=== PATIENT | male | born 1965 | race Caucasian/White ===

== ENCOUNTER 2024-11-11 21:24 | Inpatient (IN) | payer OTHER, SELFPAY ==
[2024-11-11 21:50] VITALS: BP 130/81; PULSE 77; RESP 16; TEMP 37.1; O2SAT 96
[2024-11-11 22:05] VITALS: BMI 19.6
[2024-11-11] MEDS: hydrOXYzine HCL 25 MG TABLET PO (23:44)
[2024-11-11] MEDS: traZODone HCL 50 MG TABLET PO (23:44)
[2024-11-12] MEDS: OLANZapine 5 MG TABLET PO (00:38)
--- NOTE | 2024-11-12 01:06 | PC.NURSE ---
Bernardo is a 59 year old male that arrived from [facility] and was signed in on a 12b. Patient originally went to [facility] for suicidal and homicidal ideation. On unit, patient reporting high anxiety and high depression. Patient reporting suicidal ideation as he reports has chronic back and head pain that is unresolved with prescription pain medications. Has no active plan in the hospital. Patient has some homicidal ideation to police at this time. Patient denies any active AH/VH. UTOX was positive for opiates and marijuana. Patient was placed on 15 minute safety checks. Patient did not come into the hospital with any belongings except the underwear he has on and his socks and slippers. No phone or wallet present.
[2024-11-12] MEDS: traZODone HCL 50 MG TABLET PO ×2 (01:31→20:42)
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
[2024-11-12 08:02] LABS: Estimated Average Glucose 111 mg/dL; Hemoglobin A1C 147.4433 umol/L; Hemoglobin A1c % 5.5 % (<6.0)
[2024-11-12 08:17] LABS: Alanine Aminotransferase 14 U/L (0-40); Albumin Level 4.1 g/dL (3.5-5.0); Alkaline Phosphatase 49 U/L (39-117); Anion Gap 11 (12-20); Aspartate Amino Transferase 17 U/L (5-37); Bilirubin Total 0.3 mg/dL (0.0-1.0); Blood Urea Nitrogen 16 mg/dL (9-16); Carbon Dioxide 25 mmol/L (22-29); Chloride 111 mmol/L (96-108); Cholesterol 183 mg/dL (<200); Creatinine Clr Calc Pharmacy 97.5; Estimated Glomerular Filt Rate > 60; Glucose Random 147 mg/dL (60-115); HDL Cholesterol 56 mg/dL (>40); LDL Cholesterol Calculated 111 mg/dL (<100); Potassium 3.8 mmol/L (3.3-5.1); Sodium 143 mmol/L (135-145); Total Protein 6.3 g/dL (6.5-8.0); Triglycerides 82 mg/dL (<150)
[2024-11-12 08:31] LABS: TSH reflex Free T4 1.48 uIU/mL (0.32-4.0)
[2024-11-12 08:37] VITALS: BP 126/82; PULSE 70; TEMP 36.6; O2SAT 98
[2024-11-12] MEDS: oxyCODONE HCl Immed Release 5 MG TABLET 10 MG PO ×3 (08:59→20:43)
[2024-11-12] MEDS: NaPROXEN 250 MG TABLET PO ×2 (09:08→20:42)
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
[2024-11-12] MEDS: Fluticasone/Vilanterol 200/25 BLST.W.DEV 1 PUFF INHALE (10:35)
[2024-11-12 20:40] VITALS: BP 136/73; PULSE 60; RESP 14; TEMP 37.1; O2SAT 98
[2024-11-12] MEDS: Divalproex Sodium ER 500 MG TAB.ER.24H PO (20:41)
[2024-11-12] MEDS: cloNIDine HCL 0.2 MG TABLET PO (20:43)
[2024-11-13] MEDS: oxyCODONE HCl Immed Release 5 MG TABLET 10 MG PO ×4 (05:37→23:01)
[2024-11-13 08:00] VITALS: BP 123/66; PULSE 55; RESP 14; TEMP 36.6; O2SAT 98
[2024-11-13] MEDS: NaPROXEN 250 MG TABLET PO ×2 (08:21→21:36)
[2024-11-13] MEDS: Fluticasone/Vilanterol 200/25 BLST.W.DEV 1 PUFF INHALE (08:21)
--- NOTE | 2024-11-13 08:22 | MHC.RECOVRN ---
Addiction consult received for patient in regards to cannabis use. Patient declined to meet with this property underwriter. No follow up necessary.
--- NOTE | 2024-11-13 09:03 | P.PNPSI_ITS ---
Subjective Subjective Date of Service: 11/13/24 Reason For Visit: Bipolar 1 Disorder, Cocaine use disorder... Subjective Notes: Section 12B Interim History: Pacing the unit. Expressing some anxiety and depression. Eating OK. Still complaining of pain and wants pain med increased. Referred to regular team tomorrow. When asked abut sleep, states I can't believe how good I slept Medication Compliance: Yes Side effects from medications: No Attending Groups: Intermittent Review of Systems Acute medical concerns: No Medical Review of Systems: unchanged Mental Status Exam Mental Status Exam Patient Appearance: Unkempt Patient Orientation: Person, Place, Time and Situation Level of Consciousness: Alert Patient Behavior: Appropriate Mood Description: Depressed and Anxious Affect Description: Calm Patient Cognition Impaired: No Ability to Follow Directions: Good Speech Pattern: Clear Memory Description: Intact Hallucinations: None Delusions: Not Present Thought Process: Linear Thought Content: positive for Intact Depressive Symptoms: Increased Anxiety Judgement: Fair Diagnostics Vital Signs (24Hr): Vital Signs - 24 hr 11/12/24 20:40 11/13/24 08:00 Temperature 98.7 F 97.8 F Pulse Rate 60 55 Respiratory Rate 14 14 Blood Pressure 136/73 123/66 Pulse Oximetry 98 98 Oxygen Delivery Method Room Air Room Air BMI result Body Mass Index 19.6 Labs 11/12/24 07:43 Labs: Laboratory Results - last 48 hr 11/12/24 07:43 Sodium 143 Potassium 3.8 Chloride 111 H Carbon Dioxide 25 Anion Gap 11 L BUN 16 Creatinine 0.67 Estim Creat Clear Calc 97.5 Estimated GFR > 60 Random Glucose 147 H Estimat Average Glucose 111 Hemoglobin A1c % 5.5 Calcium 9.0 Total Bilirubin 0.3 AST 17 ALT 14 Alkaline Phosphatase 49 Total Protein 6.3 L Albumin 4.1 Triglycerides 82 Cholesterol 183 LDL Cholesterol, Calc 111 H HDL Cholesterol 56 TSH 1.48 Medications Medications Current Medications Acetaminophen (Acetaminophen 325 Mg Tablet) 650 mg PO Q6H PRN PRN Reason: Headache/Pain, Scale 1-10 Al Hydroxide/Mg Hydroxide (Magnesium Hydrox/Alum Hydrox 30 Ml Oral.Susp) 30 ml PO Q6H PRN PRN Reason: Heartburn/Nausea Albuterol Sulfate (Albuterol Sulfate 90 Mcg 8 Gm Inhaler) 2 puff INHALE QID PRN PRN Reason: Pain, Severe Clonidine HCl (Clonidine Hcl 0.2 Mg Tablet) 0.2 mg PO BEDTIME [facility]; Protocol Last Admin: 11/12/24 20:43 Dose: 0.2 mg Clonidine HCl (Clonidine Hcl 0.1 Mg Tablet) 0.1 mg PO TID PRN; Protocol PRN Reason: anxiety Divalproex Sodium (Divalproex Sodium Er 500 Mg Tab.Er.24h) 500 mg PO BEDTIME [facility] Last Admin: 11/12/24 20:41 Dose: 500 mg Fluticasone/Vilanterol (Fluticasone/Vilanterol 200/25 Blst.W.Dev) 1 puff INHALE RDAILY [facility] Last Admin: 11/13/24 08:21 Dose: 1 puff Hydroxyzine HCl (Hydroxyzine Hcl 25 Mg Tablet) 25 mg PO Q6H PRN PRN Reason: mild anxiety Last Admin: 11/11/24 23:44 Dose: 25 mg Magnesium Hydroxide (Milk Of Magnesia 30 Ml Oral.Susp) 30 ml PO DAILY PRN PRN Reason: Constipation Naproxen (Naproxen 250 Mg Tablet) 250 mg PO BID [facility] Last Admin: 11/13/24 08:21 Dose: 250 mg Nicotine (Nicotine 21 Mg Patch.Td24) 21 mg TRANSDERMA DAILY PRN PRN Reason: smoking cessation Nicotine Polacrilex (Nicotine Polacrilex 2 Mg Gum) 4 mg BUCCAL Q2H PRN PRN Reason: Nicotine Cravings Olanzapine (Olanzapine 5 Mg Tablet) 5 mg PO TID PRN PRN Reason: agitation Last Admin: 11/12/24 00:38 Dose: 5 mg Ondansetron HCl (Ondansetron Odt 4 Mg Tab.Rapdis) 4 mg TRANSLINGU BID PRN PRN Reason: nausea Oxycodone HCl (Oxycodone Hcl Immed Release 5 Mg Tablet) 10 mg PO Q6H PRN PRN Reason: chronic pain Last Admin: 11/13/24 05:37 Dose: 10 mg Trazodone HCl (Trazodone Hcl 50 Mg Tablet) 50 mg PO BEDTIME [facility] Last Admin: 11/12/24 20:42 Dose: 50 mg Allergies Allergies Allergy/AdvReac Type Severity Reaction Status Date / Time acetaminophen [From Tylenol] AdvReac Gastrointestinal Verified 11/11/24 22:04 Hemorrhage aspirin AdvReac Gastrointestinal Verified 11/11/24 22:04 Hemorrhage ibuprofen AdvReac Gastrointestinal Verified 11/11/24 22:04 Hemorrhage Assessment & Plan Assessment & Plan (1) Bipolar disorder: Status: Acute Code(s): F31.9 - Bipolar disorder, unspecified (2) PTSD (post-traumatic stress disorder): Status: Acute Code(s): F43.10 - Post-traumatic stress disorder, unspecified (3) Cocaine use: Status: Acute Code(s): F14.90 - Cocaine use, unspecified, uncomplicated Plan We discussed restarting Depakote, clonidine and trazodone and could discussed with primary treatment team other medication regimen. Would also like to re- establish care in the community after discharge. 11/13/24: no med changes, just started on depakote, consider increasing dose but doing better affectively and slept well. Need to address cocaine use. Needs pain management plan post-discharge. Reason for continued inpatient stay Substantial Risk for: med/psych decompensation Time Spent With Patient Time: Total time managing care of this patient today ____ minutes.
--- NOTE | 2024-11-13 11:23 | P.PNPSI_ITS ---
Subjective Subjective Date of Service: 11/13/24 Reason For Visit: Bipolar 1 Disorder, Cocaine use disorder... Subjective Notes: Section 12B (exp 11/16) Interim History: Complaining of pain. Wants mor oxycodone Diagnostics Vital Signs (24Hr): Vital Signs - 24 hr 11/12/24 20:40 11/13/24 08:00 Temperature 98.7 F 97.8 F Pulse Rate 60 55 Respiratory Rate 14 14 Blood Pressure 136/73 123/66 Pulse Oximetry 98 98 Oxygen Delivery Method Room Air Room Air BMI result Body Mass Index 19.6 Labs 11/12/24 07:43 Labs: Laboratory Results - last 48 hr 11/12/24 07:43 Sodium 143 Potassium 3.8 Chloride 111 H Carbon Dioxide 25 Anion Gap 11 L BUN 16 Creatinine 0.67 Estim Creat Clear Calc 97.5 Estimated GFR > 60 Random Glucose 147 H Estimat Average Glucose 111 Hemoglobin A1c % 5.5 Calcium 9.0 Total Bilirubin 0.3 AST 17 ALT 14 Alkaline Phosphatase 49 Total Protein 6.3 L Albumin 4.1 Triglycerides 82 Cholesterol 183 LDL Cholesterol, Calc 111 H HDL Cholesterol 56 TSH 1.48 Medications Medications Current Medications Acetaminophen (Acetaminophen 325 Mg Tablet) 650 mg PO Q6H PRN PRN Reason: Headache/Pain, Scale 1-10 Al Hydroxide/Mg Hydroxide (Magnesium Hydrox/Alum Hydrox 30 Ml Oral.Susp) 30 ml PO Q6H PRN PRN Reason: Heartburn/Nausea Albuterol Sulfate (Albuterol Sulfate 90 Mcg 8 Gm Inhaler) 2 puff INHALE QID PRN PRN Reason: Pain, Severe Clonidine HCl (Clonidine Hcl 0.2 Mg Tablet) 0.2 mg PO BEDTIME [facility]; Protocol Last Admin: 11/12/24 20:43 Dose: 0.2 mg Clonidine HCl (Clonidine Hcl 0.1 Mg Tablet) 0.1 mg PO TID PRN; Protocol PRN Reason: anxiety Divalproex Sodium (Divalproex Sodium Er 500 Mg Tab.Er.24h) 500 mg PO BEDTIME [facility] Last Admin: 11/12/24 20:41 Dose: 500 mg Fluticasone/Vilanterol (Fluticasone/Vilanterol 200/25 Blst.W.Dev) 1 puff INHALE RDAILY [facility] Last Admin: 11/13/24 08:21 Dose: 1 puff Hydroxyzine HCl (Hydroxyzine Hcl 25 Mg Tablet) 25 mg PO Q6H PRN PRN Reason: mild anxiety Last Admin: 11/11/24 23:44 Dose: 25 mg Magnesium Hydroxide (Milk Of Magnesia 30 Ml Oral.Susp) 30 ml PO DAILY PRN PRN Reason: Constipation Naproxen (Naproxen 250 Mg Tablet) 250 mg PO BID [facility] Last Admin: 11/13/24 08:21 Dose: 250 mg Nicotine (Nicotine 21 Mg Patch.Td24) 21 mg TRANSDERMA DAILY PRN PRN Reason: smoking cessation Nicotine Polacrilex (Nicotine Polacrilex 2 Mg Gum) 4 mg BUCCAL Q2H PRN PRN Reason: Nicotine Cravings Olanzapine (Olanzapine 5 Mg Tablet) 5 mg PO TID PRN PRN Reason: agitation Last Admin: 11/12/24 00:38 Dose: 5 mg Ondansetron HCl (Ondansetron Odt 4 Mg Tab.Rapdis) 4 mg TRANSLINGU BID PRN PRN Reason: nausea Oxycodone HCl (Oxycodone Hcl Immed Release 5 Mg Tablet) 10 mg PO Q6H [facility] Last Admin: 11/13/24 11:09 Dose: Not Given Trazodone HCl (Trazodone Hcl 50 Mg Tablet) 50 mg PO BEDTIME [facility] Last Admin: 11/12/24 20:42 Dose: 50 mg Allergies Allergies Allergy/AdvReac Type Severity Reaction Status Date / Time acetaminophen [From Tylenol] AdvReac Gastrointestinal Verified 11/11/24 22:04 Hemorrhage aspirin AdvReac Gastrointestinal Verified 11/11/24 22:04 Hemorrhage ibuprofen AdvReac Gastrointestinal Verified 11/11/24 22:04 Hemorrhage Assessment & Plan Assessment & Plan (1) Bipolar disorder: Status: Acute Code(s): F31.9 - Bipolar disorder, unspecified (2) PTSD (post-traumatic stress disorder): Status: Acute Code(s): F43.10 - Post-traumatic stress disorder, unspecified (3) Cocaine use: Status: Acute Code(s): F14.90 - Cocaine use, unspecified, uncomplicated Plan We discussed restarting Depakote, clonidine and trazodone and could discussed with primary treatment team other medication regimen. Would also like to re- establish care in the community after discharge. 11/13/24: no med changes, just started on depakote, consider increasing dose but doing better affectively and slept well. Need to address cocaine use. Needs pain management plan post-discharge. Reason for continued inpatient stay Substantial Risk for: rapid decompensation Time Spent With Patient Time: Total time managing care of this patient today ____ minutes.
[2024-11-13 20:40] VITALS: BP 112/61; PULSE 54; RESP 16; TEMP 36.6; O2SAT 98
[2024-11-13] MEDS: Divalproex Sodium ER 500 MG TAB.ER.24H PO (21:36)
[2024-11-13 21:37] VITALS: BP 139/78
[2024-11-13] MEDS: traZODone HCL 50 MG TABLET PO (21:37)
[2024-11-13] MEDS: cloNIDine HCL 0.2 MG TABLET PO (21:37)
[2024-11-14] MEDS: oxyCODONE HCl Immed Release 5 MG TABLET 10 MG PO ×4 (05:50→23:28)
[2024-11-14 07:35] VITALS: BP 98/55; PULSE 54; RESP 18; TEMP 36.9; O2SAT 98
[2024-11-14] MEDS: NaPROXEN 250 MG TABLET PO ×2 (08:15→20:33)
[2024-11-14] MEDS: Fluticasone/Vilanterol 200/25 BLST.W.DEV 1 PUFF INHALE (08:29)
[2024-11-14 15:36] VITALS: BP 112/59
[2024-11-14] MEDS: cloNIDine HCL 0.1 MG TABLET PO (15:36)
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
[2024-11-14 20:00] VITALS: BP 118/65; PULSE 57; RESP 16; TEMP 36.4; O2SAT 98
[2024-11-14] MEDS: Divalproex Sodium ER 500 MG TAB.ER.24H PO (20:32)
[2024-11-14] MEDS: traZODone HCL 50 MG TABLET PO (20:33)
[2024-11-14 20:37] VITALS: BP 118/65
[2024-11-14] MEDS: cloNIDine HCL 0.2 MG TABLET PO (20:37)
[2024-11-15] MEDS: oxyCODONE HCl Immed Release 5 MG TABLET 10 MG PO ×4 (05:43→23:00)
[2024-11-15 07:59] VITALS: BP 111/55; PULSE 50; RESP 16; TEMP 36.9; O2SAT 97
[2024-11-15] MEDS: NaPROXEN 250 MG TABLET PO ×2 (08:20→23:00)
[2024-11-15] MEDS: Fluticasone/Vilanterol 200/25 BLST.W.DEV 1 PUFF INHALE (08:21)
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
[2024-11-15 22:55] VITALS: BP 139/103; PULSE 98; RESP 18; TEMP 37.1; O2SAT 99
[2024-11-15] MEDS: hydrOXYzine HCL 25 MG TABLET PO (23:00)
[2024-11-15] MEDS: Divalproex Sodium ER 500 MG TAB.ER.24H PO (23:01)
[2024-11-15] MEDS: cloNIDine HCL 0.2 MG TABLET PO (23:01)
[2024-11-16] MEDS: oxyCODONE HCl Immed Release 5 MG TABLET 10 MG PO ×2 (05:07→11:03)
[2024-11-16 08:00] VITALS: BP 112/58; PULSE 80; RESP 16; TEMP 36.6; O2SAT 99
[2024-11-16] MEDS: Fluticasone/Vilanterol 200/25 BLST.W.DEV 1 PUFF INHALE (08:13)
[2024-11-16] MEDS: NaPROXEN 250 MG TABLET PO (08:13)
== END 2024-11-16 11:06 | disposition home or self-care (01) | DRG 885 ==
PROVIDERS: Psychiatry & Neurology Psychiatry; Admitting Provider Psychiatry & Neurology Psychiatry; Visit Provider Psychiatry & Neurology Psychiatry
DX: F31.9 Bipolar disorder, unspecified (principal); R45.851 Suicidal ideations; F17.210 Nicotine dependence, cigarettes, uncomplicated; Z71.6 Tobacco abuse counseling; D17.1 Benign lipomatous neoplasm of skin and subcutaneous tissue of trunk; R51.9 Headache, unspecified; F14.90 Cocaine use, unspecified, uncomplicated; F43.12 Post-traumatic stress disorder, chronic; J44.9 Chronic obstructive pulmonary disease, unspecified; M54.9 Dorsalgia, unspecified; Z91.51 Personal history of suicidal behavior; G89.29 Other chronic pain; R45.850 Homicidal ideations; Z79.899 Other long term (current) drug therapy
CPT/HCPCS: 36415; 80053; 80061; 83036; 84443

== ENCOUNTER → 2024-11-11 21:24 | Outpatient (BNV) | payer MEDICAID, SELFPAY | PROVIDERS: Admitting Provider Psychiatry & Neurology Psychiatry; Visit Provider Student in an Organized Health Care Education/Training Program | DX: Z00.8 Encounter for other general examination (principal) | CPT/HCPCS: 99222 ==

== ENCOUNTER → 2024-11-11 21:24 | Outpatient (BNV) | payer OTHER, SELFPAY | PROVIDERS: Admitting Provider Psychiatry & Neurology Psychiatry; Visit Provider Psychiatry & Neurology Psychiatry | DX: F31.4 Bipolar disorder, current episode depressed, severe, without psychotic features (principal); F43.11 Post-traumatic stress disorder, acute; F14.90 Cocaine use, unspecified, uncomplicated | CPT/HCPCS: 99231; 99232; 99499 ==